=== PATIENT | male | born 1990 | race Caucasian/White ===

== ENCOUNTER 2020-04-11 09:28 | Inpatient (IN) | payer MEDICAID, OTHER ==
[~2020-04-11] VITALS: Ht 182.9 cm; Wt 71.8 kg
--- NOTE | 2020-04-11 09:43 | NUR ---
MANAGER CUSTOMS: PT HYPOTENSIVE, TACHYPNEIC AND TACHYCARDIC IN TRIAGE. PT SYMPTOMATIC W/ BP 79/36. BROUGHT BACK TO ROOM, ED PROVIDER UPDATED.
[2020-04-11] MEDS ORDERED: PIPERACILLIN/TAZO/PMX 3.375GM 50 ML IVPB ONE (10:00)
[2020-04-11] MEDS ORDERED: SODIUM CHLORIDE 0.9% 1,000ML IVBOLUS ONE (10:00)
[2020-04-11] MEDS ORDERED: SODIUM CHLORIDE FLUSH 10ML SYR IVF ONE (10:00)
--- NOTE | 2020-04-11 10:09 | NUR ---
PT CAME IN CO OF WEAKNESS, CACERES, NAUSEA, LEFT ARM REDNESS SWELLING AND PAIN. PT LEFT HAND IS ALSO SWOLLEN AND RED. PT ADMITS TO INJECTING IV DRUGS DAILY. PT ALSO HAS A WOUND ON HIS LEFT FOOT THAT APPEARS TO HAVE POOR HEALING. PT RESTING IN [facility]. LABS DRAWN. IV FLUIDS INFUSING AT THIS TIME
[2020-04-11] MEDS ORDERED: PIPERACILLIN/TAZO/PMX 3.375GM 50 ML ONE (10:14)
--- NOTE | 2020-04-11 10:21 | NUR ---
BLOOD CULTURES DRAWN PRIOR TO ADM OF ABX
[2020-04-11 10:23] LABS: MEAN CORPUSCULAR HEMOGLOBIN 32.9 pg (27.5-34.5); MEAN CORPUSCULAR HGB CONC 34.2 g/dL (33.2-36.2); MEAN PLATELET VOLUME 8.1 fL (7.4-10.4); PLATELET COUNT 307 x10^3/uL (130-400); RED BLOOD COUNT 4.44 x10^6/uL (4.38-5.82); RED CELL DISTRIBUTION WIDTH 14.5 % (9.4-14.8)
[2020-04-11 10:31] LABS: INTERNATIONAL NORMALIZED RATIO 1.08 (0.93-1.1); PROTHROMBIN TIME 11.4 Seconds (9.6-11.5)
[2020-04-11 10:34] LABS: ALANINE AMINOTRANSFERASE 83 U/L (12-78); ALBUMIN 3.2 g/dL (3.4-5.0); ANION GAP 10 mmol/L (5-15); CALCIUM 8.8 mg/dL (8.5-10.1); CHLORIDE 96 mmol/L (98-107)
[2020-04-11 10:41] LABS: ALKALINE PHOSPHATASE 97 U/L (45-117); BILIRUBIN,TOTAL 1.2 mg/dL (0.2-1.0); CREATININE 1.13 mg/dL (0.7-1.3); TOTAL PROTEIN 7.3 g/dL (6.4-8.2)
--- NOTE | 2020-04-11 10:55 | NUR ---
RECEIVD REPORT FROM ANSELMO TORRES. ASSUMING CARE AT THIS TIME.
[2020-04-11 11:07] LABS: MD YES
[2020-04-11 11:09] LABS: BAND#(MANUAL) 3.42 x10^3/uL; BANDS%(MANUAL) 12 % (0-7); LYMPH#(MANUAL) 2.28 x10^3/uL (1-3.4); LYMPHS% (MANUAL) 8 % (22-44); MONOS#(MANUAL) 2.28 x10^3/uL (0.3-2.7); MONOS% (MANUAL) 8 % (2-9); REACTIVE LYMPHS # (MANUAL) 0.29 x10^3/uL (0-0); REACTIVE LYMPHS % (MANUAL) 1 % (0-0); SEG#(MANUAL) 20.24 x10^3/uL (1.8-6.8); SEGS% (MANUAL) 71 % (42-75)
[2020-04-11 11:10] LABS: <PLATELET ESTIMATE> ADEQUATE; <PLT MORPHOLOGY> NORMAL PLT MORPH; <RBC MORPHOLOGY> NORMAL; PMNS WITH VACUOLES 1+
[2020-04-11 11:28] LABS: HCT (SEDRATE) 42.8 % (39.2-51.8)
[2020-04-11] MEDS ORDERED: FENTANYL PF 100 MCG/2ML IVPush ONE (11:30)
[2020-04-11] MEDS ORDERED: VANCOMYCIN 1,900 MG in SODIUM CHLORIDE 0.9% 250 ML IV ONE (11:30)
[2020-04-11] MEDS ORDERED: FENTANYL PF 100 MCG/2ML ONE (11:30)
[2020-04-11] MEDS ORDERED: SODIUM CHLORIDE 0.9% 1,000 ML IV ONE (11:30)
[2020-04-11] MEDS ORDERED: VANCOMYCIN PER PHARMACY MC ONE (11:30)
--- NOTE | 2020-04-11 11:40 | NUR ---
MEDS ADMIN PER JUL. IVF RUNNING.
--- NOTE | 2020-04-11 11:46 | NUR ---
REPORT GIVEN TO OLIVERIO TORRES.
[2020-04-11] MEDS ORDERED: OMNIPAQUE 350 MG/ML, 100ML BOTTLE ONE (12:45)
[2020-04-11 13:01] VITALS: BP 124/76
[2020-04-11 13:10] LABS: AMPHETAMINE SCREEN, URINE Positive (Negative); BARBITURATE SCREEN, URINE Negative (Negative); BENZODIAZEPINE SCREEN, URINE Negative (Negative); CANNABINOID SCREEN, URINE Negative (Negative); COCAINE SCREEN, URINE Negative (Negative); METHADONE SCREEN, URINE Negative (Negative); OPIATE SCREEN, URINE Positive (Negative)
[2020-04-11 13:39] VITALS: BP 130/66
[2020-04-11 14:00] VITALS: BP 130/77
[2020-04-11] MEDS ORDERED: ONDANSETRON 2MG/ML, 2ML IVPush PRN (14:30)
[2020-04-11] MEDS ORDERED: TRAZODONE 50MG TABLET PO PRN (14:30)
[2020-04-11] MEDS ORDERED: ACETAMINOPHEN 325 MG TABLET PO PRN (14:30)
[2020-04-11] MEDS ORDERED: ONDANSETRON ODT 4 MG PO PRN (14:30)
[2020-04-11] MEDS: ENOXAPARIN 40 MG/0.4 ML SQ SCH (14:30)
[2020-04-11] MEDS ORDERED: VANCOMYCIN PER PHARMACY MC PRN (14:30)
[2020-04-11] MEDS ORDERED: LABETALOL 5MG/ML, 20ML IVPush PRN (14:30)
[2020-04-11] MEDS ORDERED: GABAPENTIN 300 MG CAPSULE PO PRN (14:30)
[2020-04-11] MEDS ORDERED: BISACODYL 10 MG SUPP PR PRN (14:30)
[2020-04-11] MEDS ORDERED: POLYETHYLENE GLYCOL 17 GM PACKET PO PRN (14:30)
[2020-04-11] MEDS ORDERED: POTASSIUM CHLORIDE 40 MEQ in SODIUM CHLORIDE 0.9% 500 ML IV ONE (15:00)
[2020-04-11] MEDS ORDERED: MAGNESIUM SULFATE PMX 2GM/50ML 50 ML IV ONE (15:00)
[2020-04-11] MEDS ORDERED: PHARMACOKINETIC MONITORING MC PRN (15:30)
[2020-04-11] MEDS ORDERED: PHARMACOKINETIC CONSULTATION MC ONE (15:30)
[2020-04-11] MEDS: morphine SULFATE 10 MG/ML, 1ML IVPush PRN (17:16)
[2020-04-11] MEDS: PIPERACILLIN/TAZO/PMX 3.375GM 50 ML IV SCH ×2 (17:19→22:51)
[2020-04-11] MEDS: POTASSIUM CHLORIDE 10 MEQ in D5%-LACTATED RINGERS 1,000 ML IV SCH (17:19)
[2020-04-11] MEDS: OXYcodone/APAP 5/325MG TABLET PO PRN ×2 (18:02→22:51)
[2020-04-11 20:30] VITALS: BP 113/51
[2020-04-11 21:50] LABS: MICROSCOPIC NOT IND
[2020-04-11] MEDS: FAMOTIDINE 20 MG/2 ML IVPush SCH (21:53)
[2020-04-12] VITALS (7 sets, daily range): BP systolic 89–123; BP diastolic 53–76
[2020-04-12] MEDS: VANCOMYCIN 1,500 MG in SODIUM CHLORIDE 0.9% 250 ML IV SCH ×2 (01:21→13:19)
[2020-04-12] MEDS: OXYcodone/APAP 5/325MG TABLET PO PRN ×2 (05:16→10:19)
[2020-04-12] MEDS: POTASSIUM CHLORIDE 10 MEQ in D5%-LACTATED RINGERS 1,000 ML IV SCH ×2 (05:17→16:45)
[2020-04-12] MEDS: PIPERACILLIN/TAZO/PMX 3.375GM 50 ML IV SCH ×4 (05:17→22:38)
[2020-04-12 06:23] LABS: HCT (SEDRATE) 36.5 % (39.2-51.8)
[2020-04-12 06:25] LABS: BASOPHILS % (AUTO) 1 % (0-1); EOSINOPHILS % (AUTO) 2 % (1-7); LYMPHOCYTES % (AUTO) 8 % (22-44); MEAN CORPUSCULAR HEMOGLOBIN 33.3 pg (27.5-34.5); MEAN CORPUSCULAR HGB CONC 34.7 g/dL (33.2-36.2); MEAN PLATELET VOLUME 8.2 fL (7.4-10.4); MONOCYTES % (AUTO) 9 % (2-9); NEUTROPHILS % (AUTO) 81 % (42-75); PLATELET COUNT 181 x10^3/uL (130-400); RED BLOOD COUNT 3.76 x10^6/uL (4.38-5.82); RED CELL DISTRIBUTION WIDTH 14.4 % (9.4-14.8)
[2020-04-12 06:34] LABS: ALBUMIN 2.2 g/dL (3.4-5.0); ANION GAP 6 mmol/L (5-15); CALCIUM 7.8 mg/dL (8.5-10.1); CHLORIDE 107 mmol/L (98-107)
[2020-04-12 06:36] LABS: MD NO
[2020-04-12 06:37] LABS: ALANINE AMINOTRANSFERASE 46 U/L (12-78); ALKALINE PHOSPHATASE 68 U/L (45-117); BILIRUBIN,TOTAL 0.7 mg/dL (0.2-1.0); CREATININE 0.71 mg/dL (0.7-1.3); TOTAL PROTEIN 5.6 g/dL (6.4-8.2)
[2020-04-12] MEDS: FAMOTIDINE 20 MG/2 ML IVPush SCH ×2 (10:06→22:38)
[2020-04-12] MEDS: SENNA/DOCUSATE TABLET PO SCH (10:18)
[2020-04-12] MEDS ORDERED: ALBUMIN HUMAN 25% 100 ML IV ONE (15:30)
[2020-04-12] MEDS: ENOXAPARIN 40 MG/0.4 ML SQ SCH (15:43)
[2020-04-12] MEDS: SODIUM CHLORIDE 0.9% 500 ML IV SCH ×3 (16:45→20:19)
[2020-04-12] MEDS ORDERED: GADOTERATE 7.5 MMOL/15 ML VIAL ONE (18:42)
[2020-04-12] MEDS: morphine SULFATE 10 MG/ML, 1ML IVPush PRN (22:56)
[2020-04-13 00:07] VITALS: BP 107/61
[2020-04-13] MEDS: VANCOMYCIN 1,500 MG in SODIUM CHLORIDE 0.9% 250 ML IV SCH ×3 (01:22→18:23)
[2020-04-13] MEDS: PIPERACILLIN/TAZO/PMX 3.375GM 50 ML IV SCH ×4 (04:48→22:34)
[2020-04-13 05:04] VITALS: BP 121/74
[2020-04-13 08:05] LABS: HCT (SEDRATE) 36.9 % (39.2-51.8)
[2020-04-13 08:08] LABS: BASOPHILS % (AUTO) 1 % (0-1); EOSINOPHILS % (AUTO) 3 % (1-7); LYMPHOCYTES % (AUTO) 13 % (22-44); MEAN CORPUSCULAR HEMOGLOBIN 33.4 pg (27.5-34.5); MEAN CORPUSCULAR HGB CONC 34.6 g/dL (33.2-36.2); MEAN PLATELET VOLUME 8.3 fL (7.4-10.4); MONOCYTES % (AUTO) 8 % (2-9); NEUTROPHILS % (AUTO) 76 % (42-75); PLATELET COUNT 192 x10^3/uL (130-400); RED BLOOD COUNT 3.83 x10^6/uL (4.38-5.82)
[2020-04-13 08:15] LABS: MD NO
[2020-04-13 08:19] LABS: ANION GAP 8 mmol/L (5-15); CALCIUM 8.2 mg/dL (8.5-10.1); CHLORIDE 108 mmol/L (98-107); CREATININE 0.65 mg/dL (0.7-1.3)
[2020-04-13 09:38] VITALS: BP 122/75
[2020-04-13] MEDS: FAMOTIDINE 20 MG/2 ML IVPush SCH ×2 (10:07→19:44)
[2020-04-13] MEDS: SENNA/DOCUSATE TABLET PO SCH (10:08)
[2020-04-13] MEDS: morphine SULFATE 10 MG/ML, 1ML IVPush PRN (10:39)
[2020-04-13 12:09] VITALS: BP 103/63
[2020-04-13] MEDS: OXYcodone/APAP 10/325MG TABLET PO PRN ×2 (12:28→19:45)
[2020-04-13] MEDS: ENOXAPARIN 40 MG/0.4 ML SQ SCH (14:09)
[2020-04-13] MEDS: POTASSIUM CHLORIDE 10 MEQ in D5%-LACTATED RINGERS 1,000 ML IV SCH (16:11)
[2020-04-13 19:04] VITALS: BP 112/70
[2020-04-14 01:05] VITALS: BP 108/69
[2020-04-14] MEDS: VANCOMYCIN 1,500 MG in SODIUM CHLORIDE 0.9% 250 ML IV SCH ×3 (03:06→18:49)
[2020-04-14] MEDS: PIPERACILLIN/TAZO/PMX 3.375GM 50 ML IV SCH ×4 (04:48→22:13)
[2020-04-14] MEDS: POTASSIUM CHLORIDE 10 MEQ in D5%-LACTATED RINGERS 1,000 ML IV SCH ×2 (04:49→15:56)
[2020-04-14] MEDS: METHADONE 5 MG TABLET PO SCH ×3 (06:01→18:50)
[2020-04-14 06:49] LABS: BASOPHILS % (AUTO) 1 % (0-1); EOSINOPHILS % (AUTO) 5 % (1-7); LYMPHOCYTES % (AUTO) 22 % (22-44); MEAN CORPUSCULAR HGB CONC 34.4 g/dL (33.2-36.2); MEAN PLATELET VOLUME 8.1 fL (7.4-10.4); MONOCYTES % (AUTO) 10 % (2-9); NEUTROPHILS % (AUTO) 62 % (42-75); PLATELET COUNT 260 x10^3/uL (130-400); RED BLOOD COUNT 4.05 x10^6/uL (4.38-5.82); RED CELL DISTRIBUTION WIDTH 14.3 % (9.4-14.8)
[2020-04-14 06:58] LABS: MD NO
[2020-04-14 07:17] VITALS: BP 116/76
[2020-04-14] MEDS: FAMOTIDINE 20 MG/2 ML IVPush SCH (09:57)
[2020-04-14] MEDS: SENNA/DOCUSATE TABLET PO SCH (09:57)
[2020-04-14 13:46] VITALS: BP 120/73
[2020-04-14] MEDS: ENOXAPARIN 40 MG/0.4 ML SQ SCH (15:56)
[2020-04-14] MEDS: OXYcodone/APAP 10/325MG TABLET PO PRN ×2 (16:35→22:20)
[2020-04-14] MEDS ORDERED: morphine SULFATE 10 MG/ML, 1ML IVPush PRN (17:30)
[2020-04-14 18:25] VITALS: BP 93/56
[2020-04-14] MEDS: FAMOTIDINE 20 MG TABLET PO SCH (22:13)
[2020-04-15 00:53] VITALS: BP 96/59
[2020-04-15] MEDS: METHADONE 5 MG TABLET PO SCH ×4 (01:18→19:59)
[2020-04-15] MEDS: VANCOMYCIN 1,500 MG in SODIUM CHLORIDE 0.9% 250 ML IV SCH ×3 (02:43→18:29)
[2020-04-15] MEDS: PIPERACILLIN/TAZO/PMX 3.375GM 50 ML IV SCH ×4 (04:27→22:12)
[2020-04-15] MEDS: POTASSIUM CHLORIDE 10 MEQ in D5%-LACTATED RINGERS 1,000 ML IV SCH ×2 (06:34→16:27)
[2020-04-15 07:58] VITALS: BP 101/56
[2020-04-15] MEDS: SENNA/DOCUSATE TABLET PO SCH (09:00)
[2020-04-15] MEDS: OXYcodone/APAP 10/325MG TABLET PO PRN (10:04)
[2020-04-15] MEDS: FAMOTIDINE 20 MG TABLET PO SCH ×2 (10:04→19:59)
[2020-04-15 12:41] VITALS: BP 98/60
[2020-04-15] MEDS: ENOXAPARIN 40 MG/0.4 ML SQ SCH (14:00)
[2020-04-15 18:31] VITALS: BP 116/74
[2020-04-15] MEDS ORDERED: POLY17PO5 PO (22:14)
[2020-04-15] MEDS ORDERED: OXYC1TAB18 PO (22:14)
[2020-04-15] MEDS ORDERED: METH5TAB2 PO (22:14)
[2020-04-15] MEDS ORDERED: Senna/Docusate PO (22:14)
[2020-04-15] MEDS ORDERED: ONDA4TAB13 PO (22:14)
[2020-04-15] MEDS ORDERED: AMOX1TAB64 PO (22:16)
[2020-04-15] MEDS ORDERED: CLIN300C8 PO (22:16)
[2020-04-16 01:00] VITALS: BP 100/62
[2020-04-16] MEDS: METHADONE 5 MG TABLET PO SCH ×3 (02:16→16:02)
[2020-04-16] MEDS: VANCOMYCIN 1,500 MG in SODIUM CHLORIDE 0.9% 250 ML IV SCH (03:00)
[2020-04-16] MEDS: POTASSIUM CHLORIDE 10 MEQ in D5%-LACTATED RINGERS 1,000 ML IV SCH ×2 (04:08→11:27)
[2020-04-16] MEDS: PIPERACILLIN/TAZO/PMX 3.375GM 50 ML IV SCH ×4 (04:08→16:02)
[2020-04-16] MEDS ORDERED: POTASSIUM CHLORIDE 20 MEQ TAB.ER.PRT ONE (06:43)
[2020-04-16 07:18] VITALS: BP 103/67
[2020-04-16] MEDS: SENNA/DOCUSATE TABLET PO SCH (09:32)
[2020-04-16] MEDS: FAMOTIDINE 20 MG TABLET PO SCH (09:32)
[2020-04-16 10:33] LABS: CREATININE 0.89 mg/dL (0.7-1.3)
[2020-04-16] MEDS ORDERED: VANCOMYCIN 1,300 MG in SODIUM CHLORIDE 0.9% 250 ML IV SCH (11:30)
[2020-04-16 12:36] VITALS: BP 106/68
[2020-04-16] MEDS: ENOXAPARIN 40 MG/0.4 ML SQ SCH (12:47)
== END 2020-04-16 17:28 | disposition home or self-care (01) | DRG 720 ==
LOC: ED 11:15 → EDBD 12:13 → EDIP 12:13 → 3N 12:30
PROVIDERS: ADMIT Internal Medicine; ATTEND Internal Medicine
DX: A41.9 Sepsis, unspecified organism (principal); L03.114 Cellulitis of left upper limb; U07.1 COVID-19; Z88.6 Allergy status to analgesic agent; Z88.8 Allergy status to other drugs, medicaments and biological substances; E83.42 Hypomagnesemia; E87.6 Hypokalemia; F11.20 Opioid dependence, uncomplicated; F15.20 Other stimulant dependence, uncomplicated; F17.210 Nicotine dependence, cigarettes, uncomplicated; F32.9 Major depressive disorder, single episode, unspecified; F43.10 Post-traumatic stress disorder, unspecified; T40.2X5A Adverse effect of other opioids, initial encounter; Z59.0 Homelessness; Z83.3 Family history of diabetes mellitus
CPT/HCPCS: 36415; 71045; 80048; 80053; 80202; 80307; 81003; 82565; 83605; 83735; 84100; 85025; 85610; 85651; 86140; 87040; 93005; 96365; 96375; 99291; G0378; J1650; J2543; J3010; J3370; J3480; P9047; Q9967; A9575; J2270; J3475; J7030; J7040; J7050; J7121; U0003

== ENCOUNTER 2020-04-29 07:34 | Emergency (ER) | payer MEDICAID ==
[~2020-04-29] VITALS: Ht 182.9 cm; Wt 71.0 kg
[~2020-04-29 07:34] MED LIST: AMOX1TAB64 PO; CLIN300C9 PO; METH5TAB2 PO; ONDA4TAB13 PO; OXYC1TAB18 PO; POLY17PO5 PO; Senna/Docusate PO
[2020-04-29 07:36] VITALS: BP 122/86
--- NOTE | 2020-04-29 07:46 | NUR ---
RESIDENT AT BEDSIDE FOR ED EVAL.
== END 2020-04-29 09:15 | disposition home or self-care (01) ==
LOC: ED 08:50
DX: M79.672 Pain in left foot (principal); R53.1 Weakness; F17.200 Nicotine dependence, unspecified, uncomplicated; Z59.0 Homelessness; Z91.19 Patient's noncompliance with other medical treatment and regimen; Z48.00 Encounter for change or removal of nonsurgical wound dressing
CPT/HCPCS: 99281

== ENCOUNTER 2020-10-24 16:00 | Emergency (ER) | payer MEDICAID ==
[~2020-10-24] VITALS: Ht 182.9 cm; Wt 76.0 kg
[2020-10-24 16:06] VITALS: BP 119/71
[2020-10-24] MEDS ORDERED: SODIUM CHLORIDE 0.9% 1,000ML IVBOLUS ONE (17:00)
[2020-10-24] MEDS ORDERED: SODIUM CHLORIDE FLUSH 10ML SYR IVF ONE (17:00)
[2020-10-24 17:16] LABS: BASOPHILS % (AUTO) 1 % (0-1); EOSINOPHILS % (AUTO) 1 % (1-7); LYMPHOCYTES % (AUTO) 14 % (22-44); MEAN CORPUSCULAR HEMOGLOBIN 33.2 pg (27.5-34.5); MEAN CORPUSCULAR HGB CONC 34.6 g/dL (33.2-36.2); MEAN PLATELET VOLUME 7.8 fL (7.4-10.4); MONOCYTES % (AUTO) 8 % (2-9); NEUTROPHILS % (AUTO) 77 % (42-75); PLATELET COUNT 292 x10^3/uL (130-400); RED BLOOD COUNT 4.95 x10^6/uL (4.38-5.82); RED CELL DISTRIBUTION WIDTH 13.3 % (9.4-14.8)
[2020-10-24 17:17] LABS: MD NO
[2020-10-24 17:22] LABS: MICROSCOPIC AUTO
[2020-10-24 17:25] LABS: ALBUMIN 3.5 g/dL (3.4-5.0); ANION GAP 3 mmol/L (5-15); CALCIUM 8.6 mg/dL (8.5-10.1); CHLORIDE 108 mmol/L (98-107)
[2020-10-24 17:29] LABS: ALANINE AMINOTRANSFERASE 19 U/L (12-78); ALKALINE PHOSPHATASE 85 U/L (45-117); BILIRUBIN,TOTAL 0.3 mg/dL (0.2-1.0); CREATININE 0.75 mg/dL (0.7-1.3); TOTAL PROTEIN 7.8 g/dL (6.4-8.2)
[2020-10-24] MEDS ORDERED: MORPHINE SULFATE 4 MG/ML, 1ML IVPush PRN (17:30)
[2020-10-24] MEDS ORDERED: MORPHINE SULFATE 4 MG/ML, 1ML ONE (17:58)
[2020-10-24] MEDS ORDERED: BICILLIN-LA 2,400,000 UNITS/4 ML IM ONE (18:00)
--- NOTE | 2020-10-24 18:47 | NUR ---
RECEIVED REPORT FROM BRIAN GUTIERREZ
--- NOTE | 2020-10-24 19:05 | NUR ---
Patient given discharge instructions and they have confirmed that they understand the instructions. Patient ambulatory with steady gait.
== END 2020-10-24 19:08 | disposition home or self-care (01) ==
LOC: ED 18:32
DX: L04.1 Acute lymphadenitis of trunk (principal); R10.31 Right lower quadrant pain
CPT/HCPCS: 36415; 80053; 81001; 85025; 86592; 86780; 87086; 87491; 87591; 96361; 96372; 96374; 99284; J0561; J2270; J7030